=== PATIENT | male | born 1985 | race African-American/Black ===

== ENCOUNTER 2018-10-06 05:40 | Emergency (ER) | payer SELFPAY ==
[2018-10-06 05:47] VITALS: BMI 23.6
[2018-10-06] MEDS ORDERED: SODIUM CHLORIDE 0.9% 500 ML INFUS.BAG IV ONE (06:28)
[2018-10-06 06:46] LABS: BASO % 0.6 % (0-2.0); EOS % 0.2 % (0-4.5); HEMATOCRIT 41.4 % (35.4-49); HEMOGLOBIN 14.1 GM/dL (11.7-16.9); LYMPH % 15.5 % (8-40); MCH 29.4 pg (25.7-33.7); MCHC 34.1 g/dl (32.0-35.9); MEAN CELL VOLUME 86.1 fl (80-96); MEAN PLT VOLUME 9.9 fl (7.5-11.1); MONO % 5.2 % (3.8-10.2); NEUT % 78.5 % (42.8-82.8); PLATELET COUNT 191 K/MM3 (134-434); RBC 4.81 M/mm3 (4.00-5.60); RDW 14.1 % (11.9-15.9); WHITE BLOOD COUNT 9.7 K/mm3 (4.0-10.0)
[2018-10-06 06:50] LABS: INR 1.16 (0.83-1.09); PROTHROMBIN TIME (PATIENT) 13.7 SEC (9.7-13.0)
[2018-10-06 07:00] LABS: ALBUMIN 4.1 g/dl (3.4-5.0); ALK PHOS 65 U/L (45-117); ANION GAP 11 MMOL/L (8-16); BILIRUBIN,TOTAL 0.7 mg/dL (0.2-1); BLOOD UREA NITROGEN 18 mg/dL (7-18); CALCIUM 8.2 mg/dL (8.5-10.1); CHLORIDE 106 mmol/L (98-107); CO2 24 mmol/L (21-32); CREATININE 0.9 mg/dL (0.55-1.3); GLUCOSE,RANDOM 111 mg/dL (74-106); POTASSIUM 3.6 mmol/L (3.5-5.1); SGOT/AST 33 U/L (15-37); SGPT/ALT 33 U/L (13-61); SODIUM 141 mmol/L (136-145); TOT PROT 7.4 g/dl (6.4-8.2)
--- NOTE | 2018-10-06 07:06 | PDOC ---
History of Present Illness - General Chief Complaint: Alcohol intoxication Stated Complaint: VOMITING Time Seen by Provider: 10/06/18 07:06 - History of Present Illness Initial Comments: Mayito Anne is a 33yo man with a PMH of asthma who presents to the ED with vomiting and abdominal pain in the setting of alcohol intoxication. He is a poor historian secondary to intoxication. He states that he had "2 or 3" beers yesterday but agrees that it was likely more than that. He currently denies abdominal pain and has not been vomiting recently. Mr Anne denies drinking daily or multiple times per week, saying that he only drinks at parties. He denies any additional substance use including cigarettes. He denies any recent fevers, cough/cold, diarrhea/constipation, or other symptoms. Past History - Past Medical History Allergies/Adverse Reactions: Allergies Allergy/AdvReac Type Severity Reaction Status Date / Time No Known Allergies Allergy Verified 10/06/18 05:47 Home Medications: Ambulatory Orders NK [No Known Home Medication] 10/06/18 Asthma: Yes COPD: No - Surgical History Appendectomy: Yes - Suicide/Smoking/Psychosocial Hx Smoking History: Unknown if ever smoked Review of Systems - Review of Systems Comments:: General: No fevers, no chills, no weight or appetite change, no malaise HEENT: No changes in vision, no changes in hearing, no congestion, no sore throat CV: No chest pain, no palpitations, no LE edema Pulm: No SOB, no cough, no wheezing. h/o asthma GI: +Vomiting, +abd pain, no change in bowel habits, no melena : No frequency, no urgency, no dysuria Musc: No back pain, no joint swelling, no recent injury Skin: No rash, no lesions, no erythema Endo: No excessive thirst, no heat/cold intolerance Heme: No unusual bruising or bleeding, no swollen glands Neuro: No syncope, no numbness/tingling, no focal weakness Vasc: No claudication Psych: No recent change in mood, no SI or HI *Physical Exam - Vital Signs Last Vital Signs Temp Pulse Resp BP Pulse Ox 98.1 F 62 16 119/67 99 10/06/18 05:45 10/06/18 05:45 10/06/18 05:45 10/06/18 05:45 10/06/18 05:45 - Physical Exam Comments: General: Sleeping comfortably, no acute distress HEENT: PERRL, EOMI, sclera anicteric, no nystagmus, MMM, voice normal Cards: RRR, no murmur appreciated Pulm: Comfortable on room air, clear to auscultation bilaterally Abd: Soft, nontender, nondistended Ext: Atraumatic. No LE edema. ROM intact. Moves all extremities Vasc: Extremities WWP. Skin: Normal color, no rashes or lesions Neuro: Sleeping but arousable, follows commands, CN grossly intact, slightly slurred speech, motor/sensory grossly intact and symmetric Psych: Mood appropriate to situation ED Treatment Course - LABORATORY CBC & Chemistry Diagram: 10/06/18 06:24 10/06/18 06:24 - ADDITIONAL ORDERS Additional order review: Laboratory Results 10/06/18 10/06/18 10/06/18 06:24 06:24 06:24 PT with INR 13.70 H INR 1.16 H Sodium 141 Potassium 3.6 Chloride 106 Carbon Dioxide 24 Anion Gap 11 BUN 18 Creatinine 0.9 Creat Clearance w eGFR 98.42 Random Glucose 111 H Calcium 8.2 L Total Bilirubin 0.7 AST 33 ALT 33 Alkaline Phosphatase 65 Total Protein 7.4 Albumin 4.1 Lipase 114 10/06/18 06:24 RBC 4.81 MCV 86.1 MCHC 34.1 RDW 14.1 MPV 9.9 Neutrophils % 78.5 Lymphocytes % 15.5 Monocytes % 5.2 Eosinophils % 0.2 Basophils % 0.6 - Medications Given in the ED: ED Medications Discontinued Medications Generic Name Dose Route Start Last Admin Trade Name Patrickq PRN Reason Stop Dose Admin Sodium Chloride 1,000 ml 10/06/18 06:28 10/06/18 06:38 Normal Saline - IV 10/06/18 06:29 1,000 ml ONCE ONE Administration Medical Decision Making - Medical Decision Making 10/06/18 07:13 Mayito Anne is a 33yo man with a PMH of asthma who presents with vomiting secondary to alcohol intoxication. He is a poor historian but reports drinking multiple beers and presenting due to vomiting, now resolved. He denies alcohol abuse. - Benign exam. Sleepy but arousable and appropriate - Labs sent; CBC and chemistry, INR unremarkable. Alcohol level pending - Received fluids for rehydration - Will likely d/c home when clinically sober 10/06/18 08:02 - Alcohol 136. Will continue to observe until clinically sober or unless pt can get a ride home from a friend/family 10/06/18 10:08 - Observed ambulating in the ED w/o difficulty - Able to call a friend for transportation home - Will d/c Discussed with Dr Lee. Amy Collado PGY1 *DC/Admit/Observation/Transfer Diagnosis at time of Disposition: Alcohol intoxication - Discharge Dispostion Disposition: HOME Condition at time of disposition: Stable Decision to Admit order: No - Referrals Referrals: dominik Stone [Other] - Patient Instructions Printed Discharge Instructions: Alcohol Use Disorder, DI for Alcohol Abuse Additional Instructions: Please refrain from drinking further alcohol. Please drink plenty of water today and clear liquids. Please return to the ED with any further concerns or complaints. Please follow up with your PMD this week for further evaluation. - Post Discharge Activity
--- NOTE | 2018-10-06 07:12 | PDOC ---
Attending Attestation - Resident Resident Name: HeavenAmy - ED Attending Attestation I have performed the following: I have examined & evaluated the patient, The case was reviewed & discussed with the resident, I agree w/resident's findings & plan, Exceptions are as noted - HPI HPI: 10/06/18 08:10 33yo male with etoh use last night. Initially c/o nausea and epigastric pain when he arrived in the ED. Currently denies nausea or epigastric pain. Denies drug use. Denies falls. Pt with smell of etoh on his breath, however speaks in clear sentences. Pt sleeping, but easily arousable. No external signs of trauma. - Physicial Exam PE: 10/06/18 08:11 Gen: sleeping, but arousable, alert and oriented when awake heent: EOMI, MMM neck: supple heart: +s1s2 reg lungs: cta b/l abd: soft, appy scar well healed to RLQ, no ttp in abd, no rebound or guarding ext: no c/c/e - Medical Decision Making 10/06/18 07:12 I, Dr. Sara Lee, DO, attest that this document has been prepared under my direction and personally reviewed by me in its entirety. I further attest, that it accurately reflects all work, treatment, procedures and medical decision -making performed by me. 10/06/18 08:12 a/p: 33yo male with etoh intoxication and use last night -labs sent have been reviewed -etoh was 136 -no other acute findings on labs -pt received ivf hydration. -will allow paitent to metabolize etoh -will po challenge prior to dc -no external signs of trauma -neuro intact 10/06/18 09:52 pt awake ambulates with a steady gait clear speech stable for dc to home pt is calling for a ride home *DC/Admit/Observation/Transfer Diagnosis at time of Disposition: Alcohol intoxication - Discharge Dispostion Disposition: HOME Condition at time of disposition: Stable Decision to Admit order: No - Referrals Referrals: dominik Stone [Other] - Patient Instructions Printed Discharge Instructions: Alcohol Use Disorder Additional Instructions: Please refrain from drinking further alcohol. Please drink plenty of water today and clear liquids. Please return to the ED with any further concerns or complaints. Please follow up with your PMD this week for further evaluation. - Post Discharge Activity
[2018-10-06 07:31] VITALS: BP 114/62; PULSE 80; TEMP 98
== END 2018-10-06 10:10 | disposition home or self-care (01) ==
LOC: JER 05:40
DX: F10.120 Alcohol abuse with intoxication, uncomplicated (principal); Y90.6 Blood alcohol level of 120-199 mg/100 ml
CPT/HCPCS: 36415; 80053; 80307; 83690; 85025; 85610; 99283-25

== ENCOUNTER 2021-11-28 03:37 | Emergency (ER) | payer OTHER ==
[2021-11-28 04:00] VITALS: BP 110/85; PULSE 72; TEMP 98.6; BMI 24.2
== END 2021-11-28 05:36 | disposition home or self-care (01) ==
LOC: JER 03:37
DX: T18.128A Food in esophagus causing other injury, initial encounter (principal); M54.2 Cervicalgia
CPT/HCPCS: 70490-TC; 99284-25

== ENCOUNTER 2022-07-30 19:10 | Emergency (ER) | payer OTHER ==
[2022-07-30 19:28] VITALS: BP 117/73; PULSE 78; RESP 19; TEMP 98.6; BMI 16.9
[2022-07-30] MEDS ORDERED: IBUPROFEN 600 MG TABLET (FP) PO ONE ×2 (19:49→19:50)
[2022-07-30] MEDS ORDERED: METHOCARBAMOL 500 MG TABLET PO ONE (19:49)
[2022-07-30] MEDS ORDERED: METHOCARBAMOL 500 MG TABLET ONE (19:50)
== END 2022-07-30 19:57 | disposition home or self-care (01) ==
LOC: JERFT 19:10 → JER 19:10 → JERFT 19:57
DX: S09.90XA Unspecified injury of head, initial encounter (principal); R51.9 Headache, unspecified; M54.50 Low back pain, unspecified; V43.52XA Car driver injured in collision with other type car in traffic accident, initial encounter
CPT/HCPCS: 99283-25

== ENCOUNTER 2023-03-27 15:47 | Emergency (ER) | payer OTHER ==
[2023-03-27 15:56] VITALS: BP 115/57; PULSE 73; RESP 20; TEMP 98.2; BMI 23.1
[2023-03-27] MEDS ORDERED: ACETAMINOPHEN 500 MG TABLET (FP) PO ONE (16:35)
[2023-03-27] MEDS ORDERED: IBUPROFEN 600 MG TABLET (FP) PO ONE ×2 (16:36→16:52)
[2023-03-27] MEDS ORDERED: ACETAMINOPHEN 500 MG TABLET (FP) ONE (16:52)
[2023-03-27 17:53] LABS: BASO % 0.5 % (0-2.0); HEMATOCRIT 40.5 % (35.4-49); HEMOGLOBIN 14.3 GM/dL (11.7-16.9); LYMPH % 22.4 % (8-40); MCH 30.4 pg (25.7-33.7); MCHC 35.3 g/dl (32.0-35.9); MEAN CELL VOLUME 86.2 fl (80-96); MEAN PLT VOLUME 10.4 fl (7.5-11.1); MONO % 6.8 % (3.8-10.2); NEUT % 68.3 % (42.8-82.8); PLATELET COUNT 205 10^3/uL (134-434); RDW 14.2 % (11.9-15.9); WHITE BLOOD COUNT 11.8 K/mm3 (4.0-10.0)
[2023-03-27 17:56] LABS: EPI CELLS 14 /uL (0-25.1); HYALINE CASTS 0 /uL (0-3.1); PH,URINE 7.5 (5.0-8.0); URINE APPEARANCE CLEAR; URINE BACTERIA 57 /uL (0-1359); URINE BILIRUBIN NEGATIVE (NEGATIVE); URINE COLOR YELLOW; URINE GLUCOSE (UA) NEGATIVE (NEGATIVE); URINE KETONE TRACE (NEGATIVE); URINE LEUK ESTERASE 1+ (NEGATIVE); URINE NITRITE NEGATIVE (NEGATIVE); URINE PROTEIN NEGATIVE (NEGATIVE); URINE RBC 12 /uL (0-23.9); URINE WBC 137 /uL (0-25.8)
[2023-03-27 18:12] LABS: POTASSIUM 4.2 mmol/L (3.5-5.1)
[2023-03-27 18:14] LABS: CALCIUM 8.7 mg/dL (8.5-10.1)
[2023-03-27 18:15] LABS: ALBUMIN 3.8 g/dl (3.4-5.0); BLOOD UREA NITROGEN 17.7 mg/dL (7-18)
[2023-03-27 18:18] LABS: CREATININE 1.1 mg/dL (0.55-1.3)
[2023-03-27 18:20] LABS: BILIRUBIN,TOTAL 0.6 mg/dL (0.2-1); TOT PROT 7.1 g/dl (6.4-8.2)
== END 2023-03-27 18:55 | disposition home or self-care (01) ==
LOC: JERFT 15:47
DX: R22.43 Localized swelling, mass and lump, lower limb, bilateral (principal); M25.471 Effusion, right ankle; M25.472 Effusion, left ankle
CPT/HCPCS: 36415; 80053; 81003; 82550; 82553; 85025; 99283-25

== ENCOUNTER 2024-05-01 17:17 | Emergency (ER) | payer OTHER ==
[2024-05-01 17:24] VITALS: BP 123/64; PULSE 66; RESP 18; TEMP 99.2; BMI 23.6
== END 2024-05-01 18:56 | disposition home or self-care (01) ==
LOC: JER 17:17 → JERFT 17:17
DX: K40.91 Unilateral inguinal hernia, without obstruction or gangrene, recurrent (principal)
CPT/HCPCS: 99283-25